=== PATIENT | male | born 1960 | race Caucasian/White ===

== ENCOUNTER → 2020-12-10 16:12 | Outpatient (CLI) | payer OTHER, SELFPAY ==
--- NOTE | ~2020-12-10 | XR_ITS ---
EXAMINATION: XR shoulder LT min 2V INDICATION: Neck and left shoulder pain TECHNIQUE: Four views of the left shoulder are submitted. COMPARISON: None FINDINGS: Normal alignment. No fracture. Glenohumeral and acromioclavicular joint spaces are normal. There are partially imaged changes of coronary artery bypass grafting. IMPRESSION: 1. No acute osseous abnormality. Reviewed, dictated and finalized at location A.
--- NOTE | ~2020-12-10 | XR_ITS ---
EXAMINATION:XR_[id number]_CR DATE: 12/10/2020 17:30 INDICATION: Neck pain TECHNIQUE: AP, lateral, and odontoid views of the cervical spine are provided. COMPARISON: None FINDINGS: Alignment is normal. The odontoid is intact. No fracture is identified. The vertebral body heights are normal. There is moderate loss of intervertebral disc space height at C6-7. Small degener ative osteophytes are seen anteriorly at C6-7. Prevertebral soft tissues are normal. There is mild mu ltilevel facet and uncovertebral joint osteoarthritis. IMPRESSION: 1. Moderate cervical spondylosis at C6-7. Reviewed, dictated and finalized at location A.
== END ==
PROVIDERS: PCP Internal Medicine; Visit Provider Internal Medicine
DX: M54.2 Cervicalgia (principal); M25.512 Pain in left shoulder; M47.812 Spondylosis without myelopathy or radiculopathy, cervical region
CPT/HCPCS: 72040; 73030

== ENCOUNTER 2021-07-20 15:49 | Outpatient (CLI) | payer OTHER, SELFPAY ==
--- NOTE | ~2021-07-20 | XR_ITS ---
EXAMINATION: XR thoracic spine 3V DATE: 07/20/2021 16:18 INDICATION: Lower thoracic pain TECHNIQUE: One AP, lateral and lateral swimmer's views of the thoracic spine were obtained. COMPARISON: None. FINDINGS: 5 degree thoracic levocurvature. Sagittal alignment is normal. Vertebral body heights are normal. Mul tilevel mild disc height loss throughout the mid to lower thoracic spine. Visualized portions of the lungs are clear. Visualized portions of the cardiomediastinal silhouette is normal. Median sternotomy wires and mediastinal surgical clips are seen, likely from prior coronary artery bypass grafting. IMPRESSION: 1. 5 degree thoracic levocurvature with mild spondylosis. Reviewed, dictated and finalized at location A. W MACHINE HAND
== END 2021-07-20 15:50 ==
PROVIDERS: PCP Internal Medicine; Visit Provider Internal Medicine
DX: M47.814 Spondylosis without myelopathy or radiculopathy, thoracic region (principal)
CPT/HCPCS: 72072

== ENCOUNTER 2022-07-19 16:37 | Outpatient (CLI) | payer OTHER, SELFPAY ==
--- NOTE | ~2022-07-19 | XR_ITS ---
EXAM: XR lumbar spine 2-3V DATE: 07/19/2022 16:53 HISTORY: Low back pain . COMPARISON: None available. FINDINGS: Mild lumbar scoliosis. Decreased mineralization. 5 nonrib-bearing lumbar-type vertebral shravan dies. Pedicles intact. Minimal 2 mm retrolisthesis at L4-5, otherwise normal vertebral body alignment . Vertebral body heights preserved. Multilevel mild disc space narrowing and osteophytosis. Normal fa cets and posterior elements. No fracture or dislocation. IMPRESSION: Grade 1 retrolisthesis at L4-5. Multilevel mild degenerative disc disease. Reviewed, dictated and finalized at location K. E CUTTING MACHINE OPERATOR HELPER IMPRESSION: Grade 1 retrolisthesis at L4-5. Multilevel mild degenerative disc d isease.
== END 2022-07-19 16:38 ==
LOC: MICIMG 16:39
PROVIDERS: PCP Internal Medicine; Visit Provider Internal Medicine
DX: M54.50 Low back pain, unspecified (principal); M43.16 Spondylolisthesis, lumbar region; M51.36 Other intervertebral disc degeneration, lumbar region
CPT/HCPCS: 72100

== ENCOUNTER 2022-11-20 16:28 | Outpatient (CLI) | payer OTHER, SELFPAY ==
--- NOTE | ~2022-11-20 | MR_ITS ---
EXAMINATION: MR cervical spine wo con DATE: 11/20/2022 16:59 INDICATION: Neck pain. Cervical radiculopathy. TECHNIQUE: Magnetic resonance imaging (MRI) of the cervical spine was performed without intravenous c ontrast. Sequences included sagittal T2-weighted FSE, sagittal T2-weighted FS FSE, sagittal T1-weight ed FSE, axial MERGE, and axial T2-weighted FSE. COMPARISON: CT cervical spine 02/08/2021 FINDINGS: There is mild kyphosis of cervical spine. Vertebral body heights are normal. There is mildl y decreased disc height at C4-C5 and C5-C6 and severely decreased disc height at C6-C7. There is mild chronic anterior wedging of C6 and C7 vertebral bodies. The spinal cord signal intensity is normal. The following disc levels are specifically discussed: C2-C3: The disc does not extend beyond the endplate margin. There is no uncovertebral joint osteoarth ritis. There is mild right and moderate left facet joint osteoarthritis. There is no neural foraminal stenosis. There is no central canal stenosis. C3-C4: The disc is bulging. There is mild bilateral uncovertebral joint osteoarthritis. There is mode rate right and severe left facet joint osteoarthritis. There is no neural foraminal stenosis. There i s mild central canal stenosis. C4-C5: There is a central protrusion. There is moderate right and mild left uncovertebral joint osteo arthritis. There is no facet joint osteoarthritis. There is mild right neural foraminal stenosis. The re is mild central canal stenosis. C5-C6: The disc is bulging. There is moderate right and severe left uncovertebral joint osteoarthriti s. There is mild right and moderate left facet joint osteoarthritis. There is moderate left neural fo raminal stenosis. There is mild central canal stenosis. C6-C7: The disc is bulging. There is severe bilateral uncovertebral joint osteoarthritis. There is mi ld bilateral facet joint osteoarthritis. There is moderate bilateral neural foraminal stenosis. There is mild central canal stenosis. C7-T1: There is a left central extrusion. There is mild bilateral uncovertebral joint osteoarthritis. There is severe right and moderate left facet joint osteoarthritis. There is mild bilateral neural f oraminal stenosis. There is mild central canal stenosis. There is severe stenosis of left lateral rec ess. IMPRESSION: 1. Severe cervical spondylosis. Reviewed, dictated and finalized at location A.
== END 2022-11-20 16:29 ==
PROVIDERS: PCP Internal Medicine; Visit Provider Internal Medicine
DX: M47.22 Other spondylosis with radiculopathy, cervical region (principal)
CPT/HCPCS: 72141